=== PATIENT | female | born 1965 | race Caucasian/White ===

== ENCOUNTER 2021-01-16 19:05 | Emergency (ER) | payer BC ==
[2021-01-16 19:48] LABS: HEMOGLOBIN 18.8 gm/dl (12.3-15.3); RED BLOOD COUNT 5.94 M/UL (4.00-5.10)
[2021-01-16 20:19] LABS: BUN/CREATININE RATIO 24 (0-10)
[2021-01-16] MEDS ORDERED: DOXYCYCLINE HY100 MG PO (23:58)
[2021-01-16] MEDS ORDERED: DECADRON6 MG PO (23:58)
[2021-01-16] MEDS ORDERED: VENTOLIN HFA 66.7 GM INH (23:58)
== END 2021-01-17 00:57 | disposition home or self-care (01) ==
LOC: ER1 19:05
PROVIDERS: Family Medicine
DX: U07.1 COVID-19 (principal); J12.82 Pneumonia due to coronavirus disease 2019; I10 Essential (primary) hypertension
CPT/HCPCS: 36415; 80053; 82550; 82553; 83615; 83874; 84484; 85025; 85610; 86140; 93005; 99285; M0239; Q9967